=== PATIENT | female | born 1950 | race Caucasian/White ===

== ENCOUNTER 2024-02-20 10:52 | Emergency (ER) | payer MEDICARE, SELFPAY ==
[2024-02-20 11:22] VITALS: BP 167/75; PULSE 74; RESP 18; TEMP 36.3; O2SAT 92; BMI 40.4
--- NOTE | 2024-02-20 11:26 | DI.RAD.S_ITS ---
PROCEDURE: XR WRIST LT MIN 3V INDICATIONS: fall wrist pain 1 week ago TECHNIQUE: 4 views of the wrist were acquired. COMPARISON: None. FINDINGS: Bones: No fractures or dislocations. No suspicious bony lesions. Soft tissues: No suspicious soft tissue calcifications. IMPRESSION: No acute bony abnormality. Dictated by: Harley Smith M.D. on 02/20/2024 at 12:41 Approved by: Harley Smith M.D. on 02/20/2024 at 12:42
--- NOTE | 2024-02-20 12:32 | ED_ITS ---
HPI - Extremity Injury (Upper) <Duy Chaudhry PA-C - Last Filed: 02/20/24 14:03> General Chief Complaint: Extremity Injury, Upper Stated Complaint: sprain l wrist Time Seen by Provider: 02/20/24 12:18 Source: patient Mode of arrival: Wheelchair History of Present Illness HPI narrative: 73-year-old female presents to the ED with left-sided wrist pain status post a fall that she sustained 1 week ago. Patient states that she sustained a mechanical fall when she tripped on her oxygen tubing causing her to have a FOOSH injury to her left wrist. Patient complains of pain to the radial aspect of left wrist. No numbness, tingling, weakness. Patient does have a history of prior wrist fracture. Patient is presenting wearing a wrist brace. Related Data Allergies Allergy/AdvReac Type Severity Reaction Status Date / Time No Known Drug Allergies Allergy Verified 02/20/24 11:25 Review of Systems <Duy Chaudhry PA-C - Last Filed: 02/20/24 14:03> Constitutional Constitutional: Denies chills, Denies fatigue, Denies fever(s), Denies frequent falls, Denies lethargy and Denies weakness Eyes Eyes: Denies change in vision, Denies eye discharge, Denies irritation and Denies loss of vision ENT Ears, Nose, Mouth, and Throat: Denies change in voice, Denies dizziness, Denies neck pain, Denies sore throat and Denies throat swelling Cardiovascular Cardiovascular: Denies chest pain, Denies irregular heart rhythm, Denies lightheadedness, Denies palpitations, Denies dyspnea, Denies dyspnea on exertion and Denies orthopnea Respiratory Respiratory: Denies cough, Denies dyspnea, Denies dyspnea on exertion and Denies wheezing Gastrointestinal Gastrointestinal: Denies abdominal pain, Denies change in bowel habits, Denies diarrhea, Denies nausea and Denies vomiting Musculoskeletal Musculoskeletal: Denies muscle weakness, Denies neck pain, Denies numbness and Denies tingling Comments: L wrist pain, swelling Integumentary/Breasts Skin/Breast: Denies pruritus, Denies erythema, Denies rash and Denies wounds Neurologic Neurologic: Denies behavioral changes, Denies confusion, Denies dizziness, Denies frequent falls, Denies loss of vision, Denies numbness, Denies tingling and Denies weakness Psychiatric Psychiatric: Denies anxiety, Denies behavioral changes, Denies confusion, Denies depression, Denies homicidal ideation and Denies suicidal ideation Endocrine Endocrine: Denies fatigue, Denies flushing and Denies palpitations Hematologic/Lymphatic Hematologic/Lymphatic: Denies easy bruising Allergic/Immunologic Allergic/Immunologic: Denies urticaria, Denies throat swelling and Denies wheezing Patient History <Duy Chaudhry PA-C - Last Filed: 02/20/24 14:03> Social History Smoking Status: Former smoker Smoking Status: Former smoker tobacco type: cigarettes alcohol intake frequency: 0-2 drinks per day Substance Use Type: does not use Exam <Duy Chaudhry PA-C - Last Filed: 02/20/24 14:03> Narrative Exam Narrative: Const General:?cooperative, healthy appearing and comfortable [facility] Head:?normal to inspection Ears:?hearing grossly normal bilaterally Nose:?external nose normal Face and sinus:?normal facial exam and sinuses nontender Mouth:?oral mucosae normal Throat:?posterior oropharynx normal Eyes General:?appearance normal, both eyes and all related structures Neck Neck:?normal visual inspection and no lymphadenopathy noted Resp Effort & Inspection:?normal respiratory effort Auscultation:?clear to auscultation bilaterally Cardio Rate:?regular rate Rhythm:?regular rhythm Musculoskeletal There is swelling to the radial aspect of the left wrist, mild tenderness to palpation. Strength and sensation intact. Neurovascularly intact. Neuro General:?patient alert, patient awake and patient oriented x3 Initial Vital Signs Initial Vital Signs: Vital Signs Temperature 97.3 F L 02/20/24 11:22 Pulse Rate 74 02/20/24 11:22 Respiratory Rate 18 02/20/24 11:22 Blood Pressure 167/75 H 02/20/24 11:22 Pulse Oximetry 92 02/20/24 11:22 Oxygen Delivery Method Nasal Cannula 02/20/24 11:22 Oxygen Flow Rate 4 02/20/24 11:22 <Paulino Pelaez DO - Last Filed: 02/20/24 14:45> Initial Vital Signs Initial Vital Signs: Vital Signs Temperature 97.3 F L 02/20/24 11:22 Pulse Rate 74 02/20/24 11:22 Respiratory Rate 18 02/20/24 11:22 Blood Pressure 167/75 H 02/20/24 11:22 Pulse Oximetry 92 02/20/24 11:22 Oxygen Delivery Method Nasal Cannula 02/20/24 11:22 Oxygen Flow Rate 4 02/20/24 11:22 Course <Duy Chaudhry PA-C - Last Filed: 02/20/24 14:03> Orders Ordered: ED Orders 02/20/24 11:26 XR wrist LT min 3V Stat Discontinued Medications Ketorolac Tromethamine (Ketorolac 30 Mg/Ml Vial) 30 mg IM NOW ONE Stop: 02/20/24 12:44 Last Admin: 02/20/24 12:49 Dose: 30 mg Documented By: RB Vital Signs Vital signs: Vital Signs - 8 hr 02/20/24 11:22 02/20/24 12:57 Temperature 97.3 F L Pulse Rate 74 72 Respiratory Rate 18 17 Blood Pressure 167/75 H 162/72 H Pulse Oximetry 92 97 Oxygen Delivery Method Nasal Cannula Nasal Cannula Oxygen Flow Rate 4 4 <Paulino Pelaez DO - Last Filed: 02/20/24 14:45> Orders Ordered: ED Orders 02/20/24 11:26 XR wrist LT min 3V Stat Discontinued Medications Ketorolac Tromethamine (Ketorolac 30 Mg/Ml Vial) 30 mg IM NOW ONE Stop: 02/20/24 12:44 Last Admin: 02/20/24 12:49 Dose: 30 mg Documented By: RB Vital Signs Vital signs: Vital Signs - 8 hr 02/20/24 11:22 02/20/24 12:57 Temperature 97.3 F L Pulse Rate 74 72 Respiratory Rate 18 17 Blood Pressure 167/75 H 162/72 H Pulse Oximetry 92 97 Oxygen Delivery Method Nasal Cannula Nasal Cannula Oxygen Flow Rate 4 4 MDM - Extremity Injury (Upper) <Duy Chaudhry PA-C - Last Filed: 02/20/24 14:03> MDM Narrative Medical decision making narrative: 73-year-old female presents to the ED with left-sided wrist pain status post a fall that she sustained 1 week ago. Obtained x-ray to rule out fracture/dislocation. X-ray without acute findings. Patient's symptoms most consistent with a musculoskeletal sprain/strain. Recommend continuing the wrist brace for comfort, Tylenol, ibuprofen. Recommend follow-up with PCP as soon as possible. ED return precautions discussed with patient. Patient verbalized understanding. Medical records reviewed: Yes Discharge Plan Departure Patient Disposition: Home Clinical Impression: Sprain and strain of wrist Instructions: DI for Wrist Sprain Activity Restrictions/Additional Instructions: You were evaluated in the ED today for a wrist injury. Your x-ray did not show any fractures or dislocations. Your symptoms are most consistent with a musculoskeletal sprain/strain of the left wrist. You may continue to keep the wrist in the wrist brace. You were given an injection of Toradol for pain in the ED today. You may take 600 mg of ibuprofen and 1000 mg of Tylenol every 8 hours for pain. Please follow-up with your PCP as soon as possible. Return to the ED if you have worsening symptoms, numbness, tingling, weakness. Stand Alone Forms: Patient Portal/API ED Sign-out <Paulino Pelaez, DO - Last Filed: 02/20/24 14:45> Cosign ED Attending Cosignature Attestation: Dr Pelaez Co-Sign Statement: I was available for consultation during this patient's emergency department visit. This chart is signed by myself for administrative purposes only. I did not have direct contact with this patient during this visit. They were seen independently by the APC.
[2024-02-20] MEDS: KETOROLAC 30 MG/ML VIAL IM (12:49)
[2024-02-20 12:57] VITALS: BP 162/72; PULSE 72; RESP 17; O2SAT 97
== END 2024-02-20 12:58 | disposition home or self-care (01) ==
PROVIDERS: Emergency Provider Student in an Organized Health Care Education/Training Program
DX: S63.502A Unspecified sprain of left wrist, initial encounter (principal); S66.912A Strain of unspecified muscle, fascia and tendon at wrist and hand level, left hand, initial encounter; W01.0XXA Fall on same level from slipping, tripping and stumbling without subsequent striking against object, initial encounter
CPT/HCPCS: 73110; 96372; 99283; 99284; J1885